=== PATIENT | female | born 1985 | race Caucasian/White ===

== ENCOUNTER 2019-10-25 18:07 | Emergency (ER) | payer MEDICAID ==
[~2019-10-25] VITALS: Ht 165.1 cm; Wt 86.2 kg
[2019-10-25 18:18] VITALS: BP_SYST 113
[2019-10-25 18:49] VITALS: BP_SYST 113
== END 2019-10-25 18:50 | disposition home or self-care (01) ==
LOC: SED 18:07
DX: O9A.211 Injury, poisoning and certain other consequences of external causes complicating pregnancy, first trimester (principal); S60.211A Contusion of right wrist, initial encounter; Z3A.01 Less than 8 weeks gestation of pregnancy; W23.0XXA Caught, crushed, jammed, or pinched between moving objects, initial encounter; Y93.89 Activity, other specified; Y92.89 Other specified places as the place of occurrence of the external cause; Y99.8 Other external cause status
CPT/HCPCS: 81002; 81025; 99283